=== PATIENT | male | born 1995 | race Caucasian/White ===

== ENCOUNTER 2016-08-27 18:01 | Emergency (ER) | payer BC, OTHER ==
[2016-08-27 19:41] VITALS: BP 119/59
--- NOTE | 2016-08-27 20:47 | UC ---
Throat Pain/Nasal Ernie HPI - HPI Summary HPI Summary: pt c/o sore throat and fever x 1 day. Pt is a student at [employer], denies history of mono. Recent travel to [place] for spring vacation. - History of Current Complaint Chief Complaint: UCGeneralIllness Stated Complaint: SORE THROAT,FEVER Time Seen by Provider: 08/27/16 20:04 Hx Obtained From: Patient Onset/Duration: Sudden Onset, Lasting Days Severity: Mild Pain Intensity: 5 Pain Scale Used: 0-10 Numeric Cough: Nonproductive - occasional Associated Signs & Symptoms: Positive: Fever - Allergies/Home Medications Allergies/Adverse Reactions: Allergies Allergy/AdvReac Type Severity Reaction Status Date / Time No Known Allergies Allergy Verified 08/27/16 19:35 Home Medications: Home Medications NK [No Home Medications Reported] 08/27/16 [History Confirmed 08/27/16] PMH/Surg Hx/FS Hx/Imm Hx Previously Healthy: Yes - Surgical History Surgical History: Yes Surgery Procedure, Year, and Place: right knee surgery 02/2016 - Family History Known Family History: Positive: Cardiac Disease - Social History Occupation: Student - [employer] Alcohol Use: Weekly Substance Use Type: None Smoking Status (MU): Never Smoked Tobacco Review of Systems Constitutional: Fever, Chills, Fatigue Skin: Negative Eyes: Negative ENT: Sore Throat Respiratory: Cough - occasional Cardiovascular: Negative Gastrointestinal: Negative Genitourinary: Negative Motor: Negative Neurovascular: Negative Musculoskeletal: Negative Neurological: Negative Psychological: Negative All Other Systems Reviewed And Are Negative: Yes Physical Exam Triage Information Reviewed: Yes Appearance: Well-Appearing Vital Signs: Initial Vital Signs Temp 99.1 F 08/27/16 19:35 Pulse 81 08/27/16 19:35 Resp 16 08/27/16 19:35 BP 119/59 08/27/16 19:35 Pulse Ox 97 08/27/16 19:35 Eye Exam: Normal ENT Exam: Other ENT: Positive: Tonsillar swelling Neck exam: Normal Respiratory Exam: Normal Cardiovascular Exam: Normal Musculoskeletal Exam: Normal Neurological Exam: Normal Psychological Exam: Normal Skin Exam: Normal Throat Pain/Nasal Course/Dx - Differential Dx/Diagnosis Differential Diagnosis/HQI/PQRI: Influenza, Mononucleosis, Tonsillitis Provider Diagnoses: tonsillitis Discharge - Discharge Plan Condition: Stable Disposition: HOME Patient Education Materials: Pharyngitis (ED) [place]: [facility] [place] [facility] [Outside] Additional Instructions: Please follow up with your PCP or return to clinic as needed.
== END 2016-08-27 20:28 | disposition home or self-care (01) ==
LOC: UCCORT 18:01
DX: J03.90 Acute tonsillitis, unspecified (principal)
CPT/HCPCS: 87651; 99201; G0463

== ENCOUNTER 2016-10-14 15:36 | Emergency (ER) | payer BC, OTHER ==
[2016-10-14 15:57] VITALS: BP 131/69
--- NOTE | 2016-10-14 16:36 | UC ---
Complaint Male HPI - HPI Summary HPI Summary: LESION ON THE SHAFT OF THE PENIS X 5 DAYS , NO TENDERNESS, MILD SWELLING, NO DISCHARGE, NO DYSURIA - History of Current Complaint Chief Complaint: UCGU Stated Complaint: PERSONAL Time Seen by Provider: 10/14/16 16:02 Hx Obtained From: Patient Onset/Duration: Sudden Onset, Lasting Days - 5, Still Present Timing: Constant Severity Initially: Mild Severity Currently: Mild Pain Intensity: 0 Pain Scale Used: 0-10 Numeric Location: Penis Aggravating Factor(s): Nothing Alleviating Factor(s): Nothing Associated Signs And Symptoms: Negative: Diaphoresis, Back Pain, Fever, Hematuria, Dysuria, Constipation, Blood in Stool, Rectal Pain, Appetite, Nausea , Vomiting(# Of Episodes =), Penile Swelling, Penile Discharge - Allergies/Home Medications Allergies/Adverse Reactions: Allergies Allergy/AdvReac Type Severity Reaction Status Date / Time No Known Allergies Allergy Verified 10/14/16 15:57 PMH/Surg Hx/FS Hx/Imm Hx Previously Healthy: Yes - Surgical History Surgical History: Yes Surgery Procedure, Year, and Place: right knee surgery 02/2016. hernia repair - Family History Known Family History: Positive: Cardiac Disease - Social History Alcohol Use: Weekly Substance Use Type: None Smoking Status (MU): Never Smoked Tobacco Review of Systems Constitutional: Negative Skin: Negative Eyes: Negative ENT: Negative Respiratory: Negative All Other Systems Reviewed And Are Negative: Yes Physical Exam Triage Information Reviewed: Yes Appearance: Well-Appearing, No Pain Distress, Well-Nourished Vital Signs: Initial Vital Signs Temp 98.3 F 10/14/16 15:53 Pulse 74 10/14/16 15:53 Resp 16 10/14/16 15:53 BP 131/69 10/14/16 15:53 Pulse Ox 100 10/14/16 15:53 Vital Signs Reviewed: Yes Eyes: Positive: Conjunctiva Clear ENT: Positive: Normal ENT inspection, Hearing grossly normal, Pharynx normal Neck exam: Normal Neck: Positive: Supple, Nontender, No Lymphadenopathy Respiratory: Positive: Chest non-tender, Lungs clear, Normal breath sounds Cardiovascular: Positive: RRR, No Murmur, Pulses Normal Skin: Positive: Other - SMALL ABSCESS ON THE SHAFT OF THE PENIS , MILD ERYTHEM, NO TENDERNESS Complaint Male Course/Dx - Differential Dx/Diagnosis Provider Diagnoses: ABSCESS PENIS Discharge - Discharge Plan Condition: Stable Disposition: HOME Referrals: Non Staff,Doctor [Primary Care Provider] - Additional Instructions: SMALL ABSCESS/ PIMPLE , NO SIGN NOR SYMPTOMS OF ANY KIND OF STD INFECTIONS FOLLOW UP NEEDED
== END 2016-10-14 16:28 | disposition home or self-care (01) ==
LOC: UCCORT 15:36
DX: N48.21 Abscess of corpus cavernosum and penis (principal)
CPT/HCPCS: 99211; G0463